=== PATIENT | male | born 1955 | race Two or more races ===

== ENCOUNTER 2021-03-26 06:00 | Day surgery (SDC) | payer OTHER ==
[~2021-03-26 06:00] MED LIST: LOSARTAN PO; OMEPRAZOLE PO
== END 2021-03-26 10:45 | disposition home or self-care (01) ==
LOC: CIR.AMB 06:00
PROVIDERS: ATTEND Surgery Surgery of the Hand
DX: M65.842 Other synovitis and tenosynovitis, left hand (principal); Z20.822 Contact with and (suspected) exposure to COVID-19